=== PATIENT | male | born 1955 | race Caucasian/White ===

== ENCOUNTER → 2025-06-15 | Outpatient (CLI) | payer MEDICARE, BC, SELFPAY ==
--- NOTE | 2025-06-15 | XR_ITS ---
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
== END | disposition home or self-care (01) ==
PROVIDERS: PCP Internal Medicine; Referring Provider Internal Medicine; Visit Provider Internal Medicine
DX: M19.042 Primary osteoarthritis, left hand (principal)
CPT/HCPCS: 73110

== ENCOUNTER → 2025-07-06 | Outpatient (CLI) | payer MEDICARE, BC, SELFPAY ==
--- NOTE | 2025-07-06 | XR_ITS ---
Examination: Hand, left 3 views Technique: Hand AP, oblique, lateral 3 views Date and time of exam: July 06, 2025, 1145 hrs. Indications: Left hand pain beginning 2 months ago. Findings: Moderate juxta-articular bone demineralization. Mild to moderate osteoarthritis radiocarpal and distal interphalangeal joints especially the second through fifth distal interphalangeal joints Moderate osteoarthritis first carpometacarpal joint. No erosive arthritis. No fracture Impression: Osteoarthritis as above
--- NOTE | 2025-07-06 | XR_ITS ---
Examination: Wrist, left 3 views Technique: Wrist AP, oblique, lateral 3 views Date and time of exam: July 06, 2025, 1145 hrs. Indications: Left wrist pain beginning 2 months ago. Findings: Moderate osteopenia. Moderate narrowing radiocarpal joint. Moderate osteoarthritis first carpometacarpal joint. No fracture or avascular necrosis. Impression: Osteoarthritis as above.
[2025-07-06 13:32] LABS: Free T4 (Free Thyroxine) 1.07 ng/dL (0.89-1.76); Thyroid Stimulating Hormone 2.54 uIU/mL (0.55-4.78)
[2025-07-18 08:43] LABS: ANA Pattern NUCLEAR, HOMOGENEOUS; ANA Screen, IFA POSITIVE (NEGATIVE); ANA Titer 1:160 titer; CCP Antibody (IgG)* 130 Units; DNA (ds) Antibody* 6 IU/mL; Thyroid Peroxidase Antibodies* 9 IU/mL (<9)
== END | disposition home or self-care (01) ==
LOC: CDIM 11:09 → COPL 12:11
PROVIDERS: PCP Internal Medicine; Referring Provider Nurse Practitioner Gerontology; Visit Provider Radiology Diagnostic Radiology
DX: M19.042 Primary osteoarthritis, left hand (principal); M19.032 Primary osteoarthritis, left wrist; M25.522 Pain in left elbow; M25.532 Pain in left wrist; M62.50 Muscle wasting and atrophy, not elsewhere classified, unspecified site; M10.9 Gout, unspecified; E06.3 Autoimmune thyroiditis
CPT/HCPCS: 36415; 73110; 73130; 84439; 84443; 86038; 86200; 86225; 86376

== ENCOUNTER 2025-08-08 14:18 | Outpatient (RCR) | payer MEDICARE, BC, SELFPAY ==
--- NOTE | 2025-08-08 14:44 | PTNOTE_ITS ---
PT OP Initial Eval Patient Information Outpatient Physical Therapy Treatment Date: 08/08/25 Visit Reasons: wrist pain in left hand Medical Diagnosis: M25.532 M25.642 M79.642 Treatment Dx #1: L hand pain Treatment Dx #2: Decreased ROM L hand Start of Care: 08/08/25 Date of Onset: May 04, 2025 Smoking Status Smoking Status: Never smoker Initial Assessment Subjective: Pt is 69 yr old male c/o L hand pain and stiffness and difficulty making a fist since a painful episode in April when the hand swelled up and started hurting all of a sudden that was attributed to gout. He denies trauma or injury to the hand. This stiffness limits gripping objects and making a fist. 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 Pt requires skilled therapy to meet goals and has fair rehab potential. Eval followed by HEP printout. Short Term and Alf Goals 1. Ind with HEP 2. 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 Improved digit flexion ROM to make a full fist 4. Improved wrist flexion ROM to 45 deg and supination to full Treatment Plan Pt lives far away and times therapy visits when he comes this way so this may be once every 2 weeks ? 1. Manual therapy ? 2. Therex ? 3. Modalities as indicated, moist heat, ice, estim Frequency and Duration: 2-3x a month for 3 months depending on their schedule Certification Dates: 08/08/25 to 11/06/25 Procedure Charges OP PT Eval Mod Complex 30 minutes: Yes
== END 2025-08-09 23:59 | disposition home or self-care (01) ==
LOC: CPTX 14:18
PROVIDERS: PCP Nurse Practitioner Gerontology; Referring Provider Nurse Practitioner Gerontology; Visit Provider Nurse Practitioner Gerontology
DX: M79.642 Pain in left hand (principal); M25.532 Pain in left wrist; M25.642 Stiffness of left hand, not elsewhere classified; I10 Essential (primary) hypertension
CPT/HCPCS: 97162

== ENCOUNTER → 2025-08-08 | Outpatient (CLI) | payer MEDICARE, BC, SELFPAY ==
[2025-08-08 15:53] LABS: Misc Send Out* See Sep Rpt
[2025-08-08 16:20] LABS: Basophils # (Auto) 0.0 Thou/mm3 (0.0-0.2); Basophils % (Auto) 1 % (0-2.5); Eosinophils # (Auto) 0.5 Thou/mm3 (0.0-0.5); Eosinophils % (Auto) 6 % (0-10); Hematocrit 43.7 % (41.0-53.0); Hemoglobin 14.9 g/dL (13.5-16.0); Immature Granulocytes Auto 0.06 Thou/mm3 (0.00-0.00); Lymphocytes # (Auto) 2.8 Thou/mm3 (1.0-4.8); Lymphocytes % (Auto) 35 % (10-50); Mean Corpuscular HGB Conc 34.1 g/dl (31.0-37.0); Mean Corpuscular Hemoglobin 31.8 pg (25.0-35.0); Mean Corpuscular Volume 93 fL (80-100); Monocytes # (Auto) 0.7 Thou/mm3 (0.0-0.8); Monocytes % (Auto) 8 % (0-12); Neutrophils # (Auto) 4.0 Thou/mm3 (1.8-7.7); Neutrophils % (Auto) 50 % (37-80); Nucleated Red Blood Cell # 0.00 Thou/mm3 (0.00-0.00); Nucleated Red Blood Cell % 0 /100 WBC (0); Platelet Count 215 Thou/mm3 (140-440); RDW Standard Deviation 44.0 fL (35.1-43.9); Red Blood Count 4.68 Miln/mm3 (4.50-5.90); White Blood Count 8.1 Thou/mm3 (3.8-10.6)
[2025-08-08 16:30] LABS: RA Screen Negative (Negative)
[2025-08-08 16:35] LABS: Alanine Aminotransferase 19 U/L (10-49); Albumin, Serum 4.3 gm/dL (3.4-4.8); Albumin/Globulin Ratio 2.0 (1.2-2.2); Alkaline Phosphatase 70 U/L (46-116); Anion Gap 11 (7-16); Aspartate Amino Transferase 19 U/L (0-34); BUN/Creatinine Ratio 15 Ratio (12-20); Bilirubin,Total 1.3 mg/dL (0.3-1.2); Blood Urea Nitrogen 17 mg/dL (9-23); C-Reactive Protein < 0.5 mg/dL (0.0-0.9); Calcium 9.6 mg/dL (8.3-10.6); Calcium (Corrected) 9.6 mg/dL (8.5-10.1); Carbon Dioxide 25.4 mMol/L (20.0-31.0); Chloride 105 mMol/L (98-107); Creatinine (Component) 1.1 mg/dL (0.6-1.3); Globulin 2.2 gm/dL (2.3-3.5); Glucose 89 mg/dL (74-106); Osmolality,Calculated 281 (275-295); Potassium 3.8 mMol/L (3.4-5.1); Sodium 141 mMol/L (136-145); Total Protein 6.5 gm/dL (5.7-8.2); Uric Acid 9.1 mg/dL (3.7-9.2); eGFR > 60 See Note
[2025-08-08 16:59] LABS: Sed Rate (ESR) < 1 mm/hr (0-20)
[2025-08-08 17:12] LABS: Hepatitis A Antibody IgM Non Reactive (Non React); Hepatitis B Core Antibody IgM Non Reactive (Non React); Hepatitis B Surface Antigen Non Reactive (Non React); Hepatitis C Antibody Non Reactive (Non React)
[2025-08-12 13:50] LABS: Cardiolipin Ab (IgA) 19.8 APL-U/mL; Cardiolipin Ab (IgG) 3.6 GPL-U/mL; Sm Antibody <1.0 NEG AI (<1.0 NEGATIVE)
[2025-08-15 07:16] LABS: B2-Glycoprotein I Ab IgA 45.3 U/mL; B2-Glycoprotein I Ab IgG 8.4 U/mL; B2-Glycoprotein I Ab IgM >112.0 U/mL; Cardiolipin Ab (IgM) 48.5 MPL-U/mL; Complement Component C3* 107 mg/dL (82-185); Complement Component C4c* 18 mg/dL (15-53); DNA (ds) Antibody* 5 IU/mL; Scl-70 Antibody* <1.0 NEG AI (<1.0 NEGATIVE); Sm/RNP Antibody <1.0 NEG AI (<1.0 NEGATIVE)
== END | disposition home or self-care (01) ==
PROVIDERS: PCP Internal Medicine; Referring Provider Internal Medicine; Visit Provider Internal Medicine
DX: I10 Essential (primary) hypertension (principal); M05.9 Rheumatoid arthritis with rheumatoid factor, unspecified; M18.0 Bilateral primary osteoarthritis of first carpometacarpal joints; R53.83 Other fatigue; R76.8 Other specified abnormal immunological findings in serum; Z11.1 Encounter for screening for respiratory tuberculosis; Z11.59 Encounter for screening for other viral diseases
CPT/HCPCS: 36415; 80053; 80074; 84550; 85025; 85652; 86140; 86146; 86147; 86160; 86225; 86235; 86430; 86880

== ENCOUNTER → 2025-08-17 | Outpatient (CLI) | payer MEDICARE, BC, SELFPAY ==
[2025-08-17 11:43] LABS: Quantiferon-TB* See Sep Rpt
== END | disposition home or self-care (01) ==
LOC: COPL 11:26
PROVIDERS: PCP Internal Medicine; Referring Provider Internal Medicine; Visit Provider Internal Medicine
DX: I10 Essential (primary) hypertension (principal); M05.9 Rheumatoid arthritis with rheumatoid factor, unspecified; M18.0 Bilateral primary osteoarthritis of first carpometacarpal joints; R53.83 Other fatigue; Z11.1 Encounter for screening for respiratory tuberculosis; Z11.59 Encounter for screening for other viral diseases
CPT/HCPCS: 86480

== ENCOUNTER 2025-08-25 16:35 | Outpatient (RCR) | payer MEDICARE, BC, SELFPAY ==
--- NOTE | 2025-08-25 17:30 | PT.ODAYNRPT ---
PT Outpatient Daily Note OP Daily Note Outpatient Physical Therapy Treatment Date: 08/25/25 Visit Reasons: LEFT WRIST PAIN Subjective: Doing HEP with finger soreness Objective: Objective: See F/S for therex MHP x7' during LLPS into digit flexion Assessment: Scar tissue adhesions limits flexion ROM of L middle finger the most and PIP's and DIP's of digits 2-5 Plan: Continue per POC Length of Time (minutes) of Treatment: 30 Minutes Procedure Charges Therapeutic Exercise 30 minutes: Yes
== END 2025-09-09 23:59 | disposition home or self-care (01) ==
LOC: CPTX 16:35
PROVIDERS: PCP Nurse Practitioner Gerontology; Referring Provider Nurse Practitioner Gerontology; Visit Provider Nurse Practitioner Gerontology
DX: M25.532 Pain in left wrist (principal); M79.642 Pain in left hand; M25.642 Stiffness of left hand, not elsewhere classified
CPT/HCPCS: 97110

== ENCOUNTER → 2025-09-26 | Outpatient (CLI) | payer MEDICARE, BC, SELFPAY ==
[2025-09-26 16:30] LABS: Basophils # (Auto) 0.1 Thou/mm3 (0.0-0.2); Basophils % (Auto) 1 % (0-2.5); Eosinophils # (Auto) 0.1 Thou/mm3 (0.0-0.5); Eosinophils % (Auto) 2 % (0-10); Hematocrit 41.8 % (41.0-53.0); Hemoglobin 14.1 g/dL (13.5-16.0); Immature Granulocytes Auto 0.02 Thou/mm3 (0.00-0.00); Lymphocytes # (Auto) 2.0 Thou/mm3 (1.0-4.8); Lymphocytes % (Auto) 32 % (10-50); Mean Corpuscular HGB Conc 33.7 g/dl (31.0-37.0); Mean Corpuscular Hemoglobin 32.4 pg (25.0-35.0); Mean Corpuscular Volume 96 fL (80-100); Monocytes # (Auto) 0.7 Thou/mm3 (0.0-0.8); Monocytes % (Auto) 10 % (0-12); Neutrophils # (Auto) 3.5 Thou/mm3 (1.8-7.7); Neutrophils % (Auto) 55 % (37-80); Nucleated Red Blood Cell # 0.00 Thou/mm3 (0.00-0.00); Nucleated Red Blood Cell % 0 /100 WBC (0); Platelet Count 83 Thou/mm3 (140-440); RDW Standard Deviation 44.9 fL (35.1-43.9); Red Blood Count 4.35 Miln/mm3 (4.50-5.90); White Blood Count 6.4 Thou/mm3 (3.8-10.6)
[2025-09-26 16:39] LABS: Alanine Aminotransferase 25 U/L (10-49); Albumin, Serum 4.2 gm/dL (3.4-4.8); Albumin/Globulin Ratio 2.1 (1.2-2.2); Alkaline Phosphatase 67 U/L (46-116); Anion Gap 8 (7-16); Aspartate Amino Transferase 29 U/L (0-34); BUN/Creatinine Ratio 13 Ratio (12-20); Bilirubin,Total 1.2 mg/dL (0.3-1.2); Blood Urea Nitrogen 13 mg/dL (9-23); C-Reactive Protein < 0.5 mg/dL (0.0-0.9); Calcium 9.2 mg/dL (8.3-10.6); Calcium (Corrected) 9.2 mg/dL (8.5-10.1); Carbon Dioxide 23.6 mMol/L (20.0-31.0); Chloride 107 mMol/L (98-107); Creatinine (Component) 1.0 mg/dL (0.6-1.3); Globulin 2.0 gm/dL (2.3-3.5); Glucose 89 mg/dL (74-106); Osmolality,Calculated 276 (275-295); Potassium 4.4 mMol/L (3.4-5.1); Sodium 139 mMol/L (136-145); Total Protein 6.2 gm/dL (5.7-8.2); Uric Acid 4.3 mg/dL (3.7-9.2); eGFR > 60 See Note
[2025-09-26 17:15] LABS: Sed Rate (ESR) < 1 mm/hr (0-20)
== END | disposition home or self-care (01) ==
LOC: COPL 14:31
PROVIDERS: PCP Internal Medicine; Referring Provider Nurse Practitioner Family; Visit Provider Nurse Practitioner Family
DX: I10 Essential (primary) hypertension (principal); M18.0 Bilateral primary osteoarthritis of first carpometacarpal joints; M19.90 Unspecified osteoarthritis, unspecified site; R53.83 Other fatigue; Z11.1 Encounter for screening for respiratory tuberculosis; Z11.59 Encounter for screening for other viral diseases; Z87.39 Personal history of other diseases of the musculoskeletal system and connective tissue
CPT/HCPCS: 36415; 80053; 84550; 85025; 85652; 86140

== ENCOUNTER → 2025-11-09 | Outpatient (CLI) | payer MEDICARE, BC, SELFPAY ==
[2025-11-09 12:02] LABS: Basophils # (Auto) 0.0 Thou/mm3 (0.0-0.2); Basophils % (Auto) 0 % (0-2.5); Eosinophils # (Auto) 0.0 Thou/mm3 (0.0-0.5); Eosinophils % (Auto) 0 % (0-10); Hematocrit 44.8 % (41.0-53.0); Hemoglobin 14.9 g/dL (13.5-16.0); Immature Granulocytes Auto 0.05 Thou/mm3 (0.00-0.00); Lymphocytes # (Auto) 1.7 Thou/mm3 (1.0-4.8); Lymphocytes % (Auto) 26 % (10-50); Mean Corpuscular HGB Conc 33.3 g/dl (31.0-37.0); Mean Corpuscular Hemoglobin 32.5 pg (25.0-35.0); Mean Corpuscular Volume 98 fL (80-100); Monocytes # (Auto) 0.7 Thou/mm3 (0.0-0.8); Monocytes % (Auto) 10 % (0-12); Neutrophils # (Auto) 4.3 Thou/mm3 (1.8-7.7); Neutrophils % (Auto) 64 % (37-80); Nucleated Red Blood Cell # 0.00 Thou/mm3 (0.00-0.00); Nucleated Red Blood Cell % 0 /100 WBC (0); Platelet Count 242 Thou/mm3 (140-440); RDW Standard Deviation 44.2 fL (35.1-43.9); Red Blood Count 4.58 Miln/mm3 (4.50-5.90); White Blood Count 6.8 Thou/mm3 (3.8-10.6)
[2025-11-09 12:25] LABS: Alanine Aminotransferase 26 U/L (10-49); Albumin, Serum 4.3 gm/dL (3.4-4.8); Albumin/Globulin Ratio 1.8 (1.2-2.2); Alkaline Phosphatase 83 U/L (46-116); Anion Gap 11 (7-16); Aspartate Amino Transferase 29 U/L (0-34); BUN/Creatinine Ratio 21 Ratio (12-20); Bilirubin,Total 0.9 mg/dL (0.3-1.2); Blood Urea Nitrogen 23 mg/dL (9-23); C-Reactive Protein < 0.5 mg/dL (0.0-0.9); Calcium 9.5 mg/dL (8.3-10.6); Calcium (Corrected) 9.5 mg/dL (8.5-10.1); Carbon Dioxide 26.6 mMol/L (20.0-31.0); Chloride 106 mMol/L (98-107); Creatinine (Component) 1.1 mg/dL (0.6-1.3); Globulin 2.4 gm/dL (2.3-3.5); Glucose 98 mg/dL (74-106); Osmolality,Calculated 290 (275-295); Potassium 5.0 mMol/L (3.4-5.1); Sodium 144 mMol/L (136-145); Total Protein 6.7 gm/dL (5.7-8.2); Uric Acid 4.4 mg/dL (3.7-9.2); eGFR > 60 See Note
[2025-11-09 13:18] LABS: Sed Rate (ESR) 3 mm/hr (0-20)
== END | disposition home or self-care (01) ==
LOC: COPL 10:41
PROVIDERS: PCP Internal Medicine; Referring Provider Internal Medicine; Visit Provider Internal Medicine
DX: D69.6 Thrombocytopenia, unspecified (principal); I10 Essential (primary) hypertension; M10.9 Gout, unspecified; M18.0 Bilateral primary osteoarthritis of first carpometacarpal joints; M19.90 Unspecified osteoarthritis, unspecified site; R53.83 Other fatigue; Z11.1 Encounter for screening for respiratory tuberculosis; Z11.59 Encounter for screening for other viral diseases; Z87.39 Personal history of other diseases of the musculoskeletal system and connective tissue
CPT/HCPCS: 36415; 80053; 84550; 85025; 85652; 86140